=== PATIENT | female | born 1990 | race Caucasian/White ===

== ENCOUNTER 2021-07-11 06:12 | Inpatient (IN) | payer OTHER ==
[~2021-07-11] VITALS: Ht 152.4 cm; Wt 80.3 kg
[2021-07-11] MEDS ORDERED: PRENATABS RX T1 EACH PO (07:07)
== END 2021-07-13 12:26 | disposition home or self-care (01) | DRG 807 ==
LOC: LDR 06:12 → OB/GYN 19:58
PROVIDERS: ADMIT Obstetrics & Gynecology; ATTEND Obstetrics & Gynecology
PROC: 10E0XZZ Delivery of Products of Conception, External Approach (ICD-10-PCS; principal; 2021-07-11)
PROC: 4A1HXCZ Monitoring of Products of Conception, Cardiac Rate, External Approach (ICD-10-PCS; 2021-07-11)
DX: O99.820 Streptococcus B carrier state complicating pregnancy (principal); Z37.0 Single live birth; Z3A.39 39 weeks gestation of pregnancy; Z20.822 Contact with and (suspected) exposure to COVID-19